=== PATIENT | male | born 1950 | race Caucasian/White ===

== ENCOUNTER 2023-06-01 11:41 | Emergency (ER) | payer MEDICARE, BC, SELFPAY ==
[2023-06-01 11:46] VITALS: BP 156/82
--- NOTE | 2023-06-02 07:24 | ED.GENMED ---
History of Present Illness
General
Chief Complaint: Fall
Source: patient
Exam Limitations: none
Time Seen by Provider: 06/01/23 12:53
Nursing documentation reviewed up to this point in time: agreed with
Travel History
Have you had any contact with someone who has COVID-19?: No
Do you have any symptoms of coronavirus? Fever > 100 degrees, chills, cough, shortness of breath, sore throat, loss of taste or smell, muscle aches, or headache?: No
History of Present Illness
History of Present Illness:
73 yo male w h/o HTN, HLD, MA, Cardiac stents, states he slipped on ice while shovelling yesterday striking the back of his head on an electric meter. He was able to continue with his ADLs. Today awakened with mild nausea and lightheadedness. Not
anticoagulated, denies neck pain. Denies any other injury. Denies n/v, headache.
Past History
Past History
ED Past Medical History: CAD, Hypercholesterolemia and MA
ED Past Surgical History: Cardiac (stents) and Orthopedic
Social History
Tobacco: Non-smoker
Drug: None
Personal:
Living: with family
Employment: Retired
Phy Exam
General Physical Exam
General Presentation: well appearing and no apparent distress
General age: appears stated age
General Skin: warm and dry
General Habitus: normal
General Mental: alert
General Hydration: appears well hydrated
ENT Exam
ENT Exam: EOMI, TM's normal, pharynx normal, neck supple and normocephalic
Eye Exam
Eye Exam: PERRL, EOMI, cornea clear and conjunctiva normal
Cardiovascular Exam
Cardiovascular Exam: regular rate/rhythm
Heart Sounds: normal
Pulmonary Exam
Pulmonary Exam: lungs clear and chest non tender
Gastrointestinal Exam
Gastrointestinal Exam: non tender and soft
Neurological Exam
Neurological Exam: alert, oriented x3, CN II-XII intact, no motor deficits, speech normal, cerebellum intact and normal gait
Musculoskeletal Exam
Musculoskeletal Exam: neuro vasc intact
Skin Exam
Skin Exam: normal color and warm/dry
Psychiatric Exam
Psychiatric Exam: normal mood/affect
Course
Vital Signs
Initial and Last Documented VS:
Initial Vital Signs
Temp Pulse Resp BP Pulse Ox
97.6 F 67 18 156/82 98
06/01/23 11:46 06/01/23 11:46 06/01/23 11:46 06/01/23 11:46 06/01/23 11:46
Last Documented Vital Signs
Temp Pulse Resp BP Pulse Ox
97.6 F 67 18 156/82 98
06/01/23 11:46 06/01/23 11:46 06/01/23 11:46 06/01/23 11:46 06/01/23 11:46
MDM/Problems Addressed
Differential Diagnosis Includes:
post traumatic headache, concussion, ICH
MDM/Problems Addressed:
73 yo male w h/o HTN, HLD, MA, Cardiac stents, states he slipped on ice while shovelling yesterday striking the back of his head on an electric meter. He was able to continue with his ADLs. Today awakened with mild confusion, nausea and
lightheadedness, all which have improved. states called PCP who recommended ED eval. Not anticoagulated, denies neck pain. Denies any other injury. Denies n/v, headache.
NAD
No focal neurological deficits, not anticoagulated, no LOC, PE unremarkable, no indication for head CT at this time.
Reviewed signs of concussion, reasons to return
Pt and comfortable with plan.
Pt ambulated out with normal gait.
Chronic conditions affecting care: HTN and CAD
*Critical Care Note
Total Time (30-74mins, 75-104mins- exclusive of procedures): Not Applicable
ED Attending Note
-
Portions of this chart may have been created with voice recognition software.� Occasional wrong word or��sound alike� substitutions may have occurred due to the inherent limitations of voice recognition software.
Discharge Plan
Departure
Patient Disposition: Home (Routine Discharge)
Date of Disposition: 06/01/23
Time of Disposition: 13:11
Patient with high blood pressure during this ER visit?: No
Condition: Good
Discharge Problem:
Fall from slip, trip, or stumble, Head injury, acute, without loss of consciousness, Mild concussion
Instructions: Concussion, Adult (DC), Head Injury in Adults (DC)
Prescriptions:
No Action
multivitamin [Daily Vitamin] 1 EACH tablet
1 ea PO DAILY
aspirin 81 MG tablet,chewable
81 mg PO DAILY
hydrochlorothiazide 25 MG tablet
25 mg PO DAILY
metoprolol succinate [Toprol XL] 25 MG tablet extended release 24 hr
12.5 mg PO DAILY
lecithin 400 MG capsule
400 mg PO DAILY
rosuvastatin 20 MG tablet
20 mg PO QPM
fish oil-dha-epa 1 EACH capsule
1 ea PO DAILY
vitamin E (dl, acetate) 400 UNITS capsule
400 units PO DAILY
ascorbic acid (vitamin C) [Vitamin C] 500 MG tablet
500 mg PO DAILY
candesartan [Atacand] 32 MG tablet
32 mg PO DAILY
amlodipine 5 MG tablet
5 mg PO DAILY
acetaminophen 325 MG tablet
650 mg PO Q4HPRN PRN (Reason: mild pain) 0RF
tolterodine 4 MG capsule,extended release 24hr
4 mg PO DAILYPRN PRN (Reason: bladder spasms) Qty: 7 0RF
phenazopyridine 200 MG tablet
200 mg PO TIDPRN PRN (Reason: burning with urination) Qty: 15 0RF
Referrals:
Tiburcio Mejia I., DO [Family Provider] - As needed
Activity Restrictions/Additional Instructions:
As we discussed, I see nothing worrisome in your exam.
See your doctor Tuesday if you are not 100% better by then
Return here immediately for vomiting more than once in 1 hour, confusion or headache that gets worse and worse despite Tylenol.
Interventions
Interventions:
*Risk Screen - Suicide Last Done: 06/01/23 13:25
*General Assessment Last Done: 06/01/23 13:25
*Neglect/Abuse Screening Last Done: 06/01/23 13:25
*Nursing Disposition Last Done: 06/01/23 13:25
ED- Neurological Assessment Last Done: 06/01/23 13:00
Discharge Date and Time
Discharge Date/Time: 06/01/23 13:25
== END 2023-06-01 13:25 | disposition home or self-care (01) ==
LOC: EMR 11:41
PROVIDERS: EMERGENCY PHYSICIAN Emergency Medicine; FAMILY PHYSICIAN Internal Medicine
DX: S06.0X0A Concussion without loss of consciousness, initial encounter (principal); W00.0XXA Fall on same level due to ice and snow, initial encounter; I10 Essential (primary) hypertension; E78.00 Pure hypercholesterolemia, unspecified; I25.2 Old myocardial infarction
CPT/HCPCS: 99282

== ENCOUNTER 2023-11-02 14:36 | Emergency (ER) | payer MEDICARE, BC, SELFPAY ==
[2023-11-02 14:39] VITALS: BP 154/95
--- NOTE | 2023-11-02 17:15 | ED.GENMED ---
Addendum entered and electronically signed by Momo Mckeon MD 11/02/23 20:14:
Patient made aware of minimal hypokalemia for follow-up. EKG shows normal sinus rhythm first-degree block. Left axis deviation. No acute changes.
Original Note:
History of Present Illness
General
Chief Complaint: Headache
Source: patient
Exam Limitations: none
Time Seen by Provider: 11/02/23 16:58
History of Present Illness
History of Present Illness:
73-year-old male 2 to 3 weeks of ongoing right frontal headaches. Somewhat intermittent nature. Sometimes worse waxes and wanes. No nausea or vomiting. No visual issues. No orbital or eye pain. No fever or chills. No neck symptoms. No acute
neurologic issues. Patient sent by his primary physician for CTA head and neck.
Past History
Past History
ED Past Medical History: CAD, Hypercholesterolemia and SC
ED Past Surgical History: Cardiac (stents) and Orthopedic
Social History
Tobacco: Non-smoker
Drug: None
Personal:
Living: with family
Employment: Retired
Phy Exam
Physical Exam
Physical Exam:
GENERAL: Alert and oriented in no apparent distress
EYE: Orbits normal. Discs sharp. Extraocular muscles intact. No orbital tenderness. No temporal tenderness. No erythema
NECK: Supple, nontender.
CARDIAC: Regular rate and rhythm without any obvious murmurs.
LUNGS: Clear breath sounds,normal
ABDOMEN: Soft, without focal tenderness or distention
NEUROLOGICAL: Alert and oriented , grossly non-focal. Cranial nerves II through XII intact. Speech normal. Nonfocal.
SKIN: Warm and dry, no rash or lesion, no discoloration, skin intact.
MUSCULOSKELETAL: No edema,no deformity.Good color
PSYCH: Normal and appropriate interaction.
Course
Orders/Labs/Results
Orders:
Orders
11/02/23 17:07
CT Head & Neck Angio W/wo IV Urgent
Comment:
Reason For Exam: Severe left frontal headache. requested by pmd
IV Insert/Care/Rem.- Treatment PRN
0.9% Sodium Chloride 500 ml [Nss] 500 ml IV BOLUS
Pulse Ox/cont/shift [RESP] Stat
Quantity: 1
11/02/23 17:08
Electrocardiogram (*1) Stat
Reason for Study: Other
Other Reason for Exam: Headache
EKG- Treatment ONCE
11/02/23 17:39
Basic Metabolic Panel Urgent
Complete Blood Count/With Diff Urgent
Erythrocyte Sed Rate Urgent
Abnormal Lab Results
11/02/23
17:39
Absolute Monos (auto) 0.7 H 10^3/uL
(0.1-0.6)
Potassium 3.4 L mmol/L
(3.5-5.1)
BUN 26 H mg/dl
(9-20)
Glucose 101 H mg/dl
(70-99)
11/02/23 17:39
11/02/23 17:39
Vital Signs
Initial and Last Documented VS:
Initial Vital Signs
Temp Pulse Resp BP Pulse Ox
98.5 F 90 18 154/95 96
11/02/23 14:39 11/02/23 14:39 11/02/23 14:39 11/02/23 14:39 11/02/23 14:39
Last Documented Vital Signs
Temp Pulse Resp BP Pulse Ox
98.5 F 86 18 171/85 100
11/02/23 14:39 11/02/23 17:49 11/02/23 17:49 11/02/23 17:49 11/02/23 17:49
MDM/Problems Addressed
Differential Diagnosis Includes:
Ongoing left frontal headache. Clinically nontoxic and in no distress. Differential would include bleed aneurysm dissection less serious etiologies would include sinusitis temporal arteritis, tension. No thing to support an orbital issue or
glaucoma. Workup in progress.
*Radiology
Radiology exam reviewed: radiology read reviewed (No acute findings. 60% stenosis left internal carotid artery. Less than 50% right. No aneurysm no bleed. No dissection.)
*Pulse Oximetry
Patient hypoxic: no
*Critical Care Note
Total Time (30-74mins, 75-104mins- exclusive of procedures): Not Applicable
Data Reviewed
Review of Other/Old Records Reveals: Labs, Records and Testing
Update Note
Update Note:
Patient very nontoxic and stable. In no distress. ESR normal. Labs normal. Neurologic exam normal. CT angiography with nothing that would explain his left frontal headaches. 60% stenosis on the left but no neurologic symptoms. Stable for
discharge to follow-up
ED Attending Note
-
Portions of this chart may have been created with voice recognition software.� Occasional wrong word or��sound alike� substitutions may have occurred due to the inherent limitations of voice recognition software.
Discharge Plan
Departure
Patient Disposition: Home (Routine Discharge)
Date of Disposition: 11/02/23
Time of Disposition: 20:11
Patient with high blood pressure during this ER visit?: Yes
Discharge Problem:
Left frontal headache, Left 60% ICA narrowing
Instructions: Headache, Adult (DC), BLOOD PRESSURE
Prescriptions:
No Action
multivitamin [Daily Vitamin] 1 EACH tablet
1 ea PO DAILY
aspirin 81 MG tablet,chewable
81 mg PO DAILY
hydrochlorothiazide 25 MG tablet
25 mg PO DAILY
metoprolol succinate [Toprol XL] 25 MG tablet extended release 24 hr
12.5 mg PO DAILY
lecithin 400 MG capsule
400 mg PO DAILY
rosuvastatin 20 MG tablet
20 mg PO QPM
fish oil-dha-epa 1 EACH capsule
1 ea PO DAILY
vitamin E (dl, acetate) 400 UNITS capsule
400 units PO DAILY
ascorbic acid (vitamin C) [Vitamin C] 500 MG tablet
500 mg PO DAILY
candesartan [Atacand] 32 MG tablet
32 mg PO DAILY
amlodipine 5 MG tablet
5 mg PO DAILY
acetaminophen 325 MG tablet
650 mg PO Q4HPRN PRN (Reason: mild pain) 0RF
tolterodine 4 MG capsule,extended release 24hr
4 mg PO DAILYPRN PRN (Reason: bladder spasms) Qty: 7 0RF
phenazopyridine 200 MG tablet
200 mg PO TIDPRN PRN (Reason: burning with urination) Qty: 15 0RF
Referrals:
UNKNOWN - PT DOES,NOT KNOW [Family Provider] -
Cny Dorado MD [Active] - Next open appointment
Activity Restrictions/Additional Instructions:
Follow-up with your primary physician in 1 to 2 days
Also for completeness I recommend follow-up with a vascular surgeon
Return sooner with worsening headache any neurologic symptoms including visual changes numbness tingling weakness etc.
Interventions
Interventions:
ED- Neurological Assessment Last Done: 11/02/23 17:49
Discharge Date and Time
Print Language: CYPRIOT
[2023-11-02] MEDS: NSS 500 IV (17:41)
[2023-11-02 17:47] LABS: % Basophils 0.6 % (0-2); % Eosinophils 2.3 % (0-6); % Immature Granulocytes 0.4 % (0-0.5); % Lymphocytes 29.6 % (20.5-51.1); % Monocytes 8.5 % (1.7-9.3); % Neutrophils 58.6 % (42.2-75.2); Absolute Basophils 0.1 10^3/uL (0-0.2); Absolute Eosinophils 0.2 10^3/uL (0-0.7); Absolute Lymphocytes 2.5 10^3/uL (1.2-3.4); Absolute Monocytes 0.7 10^3/uL (0.1-0.6); Absolute Neutrophils 4.9 10^3/uL (1.4-6.5); Hematocrit 44.9 % (39.0-52.0); Hemoglobin 15.8 g/dL (13.0-18.0); Mean Corp Hgb Conc. 35.2 g/dL (33.0-37.0); Mean Corpuscular Hgb 30.9 pg (27.0-31.0); Mean Corpuscular Volume 87.9 fL (80.0-94.0); Mean Platelet Volume 9.4 fL (7.4-10.4); Nucleated Red Blood Cells % 0 % (-); Platelet Count 227 10^3/uL (130-400); Red Blood Cell Count 5.11 10^6/uL (4.70-6.10); Red Cell Dist. Width 14.1 % (11.5-14.5); White Blood Cell Count 8.3 10^3/uL (4.8-10.8)
[2023-11-02 17:49] VITALS: BP 171/85
[2023-11-02 17:58] LABS: Blood Urea Nitrogen 26 mg/dl (9-20); Carbon Dioxide 26 mmol/L (22-30); Chloride 104 mmol/L (98-107); Glucose 101 mg/dl (70-99); Potassium 3.4 mmol/L (3.5-5.1); Sodium 138 mmol/L (135-145); eGFR > 60.00
[2023-11-02 18:06] LABS: Erythrocyte Sed Rate 8 mm/hour (0-20)
== END 2023-11-02 20:22 | disposition home or self-care (01) ==
LOC: EMR 14:36
PROVIDERS: EMERGENCY PHYSICIAN Emergency Medicine
DX: R51.9 Headache, unspecified (principal); E87.6 Hypokalemia; I65.21 Occlusion and stenosis of right carotid artery; I25.10 Atherosclerotic heart disease of native coronary artery without angina pectoris; E78.00 Pure hypercholesterolemia, unspecified; I10 Essential (primary) hypertension; Z95.5 Presence of coronary angioplasty implant and graft; I25.2 Old myocardial infarction; Z88.5 Allergy status to narcotic agent; Z79.82 Long term (current) use of aspirin
CPT/HCPCS: 99285; 96360; 94760; 70496; 70498; 80048; 85025; 85652; 93005; Q9967

== ENCOUNTER → 2023-12-07 10:16 | Outpatient (REF) | payer MEDICARE, BC, SELFPAY | LOC: RAD 10:16 | PROVIDERS: ATTENDING PHYSICIAN Surgery Vascular Surgery; FAMILY PHYSICIAN Internal Medicine | DX: I65.22 Occlusion and stenosis of left carotid artery (principal); Z13.6 Encounter for screening for cardiovascular disorders | CPT/HCPCS: 76770; 93880 ==

== ENCOUNTER 2024-07-04 06:15 | Day surgery (SDC) | payer MEDICARE, BC, SELFPAY | END 2024-07-04 08:43 | disposition home or self-care (01) | LOC: GI 06:15 | PROVIDERS: ATTENDING PHYSICIAN Specialist | DX: Z12.11 Encounter for screening for malignant neoplasm of colon (principal); K57.30 Diverticulosis of large intestine without perforation or abscess without bleeding; Z86.0100 Personal history of colon polyps, unspecified | CPT/HCPCS: G0105 ==

== ENCOUNTER → 2025-03-26 10:03 | Outpatient (REF) | payer MEDICARE, BC, SELFPAY | LOC: RAD 10:03 | PROVIDERS: ATTENDING PHYSICIAN Physician Assistant; FAMILY PHYSICIAN Internal Medicine | DX: M54.50 Low back pain, unspecified (principal) | CPT/HCPCS: 72072; 72100 ==

== ENCOUNTER → 2025-04-10 13:13 | Outpatient (REF) | payer MEDICARE, BC, SELFPAY | LOC: PAVMRI 13:13 | PROVIDERS: ATTENDING PHYSICIAN Physician Assistant; FAMILY PHYSICIAN Internal Medicine | DX: M54.16 Radiculopathy, lumbar region (principal); Z96.642 Presence of left artificial hip joint; M70.72 Other bursitis of hip, left hip | CPT/HCPCS: 72148 ==

== ENCOUNTER 2025-04-13 11:31 | Emergency (ER) | payer MEDICARE, BC, SELFPAY ==
[2025-04-13 11:33] VITALS: BP 167/100
--- NOTE | 2025-04-13 12:01 | ED.MUSCINJ ---
HPI-Injury
General
Chief Complaint: Fall
Source: patient
Exam Limitations: none
Time Seen by Provider: 04/13/25 11:50
History of Present Illness-Injury
Initial Injury comments:
74-year-old male not anticoagulated presents after slip and fall on the ice. He fell backwards landing on his back and head. He notes headache neck pain and back pain. He also notes right small finger pain. No loss of conscious. No chest pain
or shortness of breath. No other complaints
Past History
Past History
ED Past Medical History: CAD, Hypercholesterolemia and IN
ED Past Surgical History: Cardiac (stents) and Orthopedic
Social History
Tobacco: Non-smoker
Drug: None
Personal:
Living: with family
Employment: Retired
Phy Exam
Physical Exam
Physical Exam:
General: Well-appearing male no acute respiratory distress
HEENT normal cephalic contusion noted to the right posterior scalp pupils equal round reactive to light TMs normal
Heart: Regular rate and rhythm
Lungs: Clear no wheeze
Musculoskeletal exam: There is tenderness about the cervical spine lower thoracic and upper lumbar spine. There is also tenderness to the right small finger possibly slight ulnar deviation of the right small finger
Neurologic exam: Normal gait conversing appropriately alert and oriented
Injury Course
Orders/Labs/Results
Orders:
Orders
04/13/25 11:56
CT Cervical Spine W/o Iv Contr Urgent
Comment:
Reason For Exam: fall
CT Head W/o Iv Contrast Urgent
Comment:
Reason For Exam: fall
CR Hand - Right Min 3 Views Urgent
Comment:
Reason For Exam: fall
CR Lumbar Spine 2 Or 3 Views Urgent
Comment:
Reason For Exam: fall
CR Thoracic Spine 3 Views Urgent
Comment:
Reason For Exam: fall
MDM/Problems Addressed
Differential Diagnosis Includes:
Patient with mechanical fall. CT of the head cervical spine x-ray thoracic and lumbar spine ordered. X-ray right hand ordered as well
*Pulse Oximetry
SaO2: 98
Oxygen Mode of Delivery: Room air
Patient hypoxic: no
*Critical Care Note
Total Time (30-74mins, 75-104mins- exclusive of procedures): Not Applicable
Update Note
Update Note:
CT of head and cervical spine negative. X-rays of the thoracic lumbar spine and right hand were reviewed and are negative for acute findings as well. Patient reassured. Recommend Tylenol or ibuprofen. Stable for discharge
ED Attending Note
-
Portions of this chart may have been created with voice recognition software.� Occasional wrong word or��sound alike� substitutions may have occurred due to the inherent limitations of voice recognition software.
Discharge Plan
Departure
Patient Disposition: Home (Routine Discharge)
Date of Disposition: 04/13/25
Time of Disposition: 14:02
Patient with high blood pressure during this ER visit?: No
Discharge Problem:
Fall
Instructions: Preventing falls in adults
Prescriptions:
No Action
multivitamin [Daily Vitamin] 1 EACH tablet
1 ea PO DAILY
aspirin 81 MG tablet,chewable
81 mg PO DAILY
hydrochlorothiazide 25 MG tablet
25 mg PO DAILY
metoprolol succinate [Toprol XL] 25 MG tablet extended release 24 hr
12.5 mg PO DAILY
lecithin 400 MG capsule
400 mg PO DAILY
rosuvastatin 20 MG tablet
20 mg PO QPM
fish oil-dha-epa 1 EACH capsule
1 ea PO DAILY
vitamin E (dl, acetate) 400 UNITS capsule
400 units PO DAILY
ascorbic acid (vitamin C) [Vitamin C] 500 MG tablet
500 mg PO DAILY
candesartan [Atacand] 32 MG tablet
32 mg PO DAILY
amlodipine 5 MG tablet
5 mg PO DAILY
acetaminophen 325 MG tablet
650 mg PO Q4HPRN PRN (Reason: mild pain) 0RF
tolterodine 4 MG capsule,extended release 24hr
4 mg PO DAILYPRN PRN (Reason: bladder spasms) Qty: 7 0RF
phenazopyridine 200 MG tablet
200 mg PO TIDPRN PRN (Reason: burning with urination) Qty: 15 0RF
Referrals:
Tiburcio Mejia I., [Family Provider, Internal Medicine]
Activity Restrictions/Additional Instructions:
Rest. Use ibuprofen or Tylenol for pain peer return if worse otherwise follow-up with your doctor
Interventions
Interventions:
*General Assessment Last Done: 04/13/25 11:33
*Neglect/Abuse Screening Last Done: 04/13/25 11:33
*ED COVID-19 Vaccine History Last Done: 04/13/25 11:33
*ED Influenza Vaccine History Last Done: 04/13/25 11:33
[facility] Fall Risk Assessment Tool Last Done: 04/13/25 11:38
*Risk Screen - Suicide (C-SSRS) Last Done: 04/13/25 11:33
ED-Musculoskeletal Assessment Last Done: 04/13/25 11:38
ED- Neurological Assessment Last Done: 04/13/25 11:38
ED-Skin Assessment Last Done: 04/13/25 11:38
Discharge Date and Time
Print Language: GUATEMALAN
[2025-04-13 14:07] VITALS: BP 154/95
== END 2025-04-13 14:18 | disposition home or self-care (01) ==
LOC: EMR 11:31
PROVIDERS: EMERGENCY PHYSICIAN Emergency Medicine; FAMILY PHYSICIAN Internal Medicine
DX: S00.03XA Contusion of scalp, initial encounter (principal); M54.2 Cervicalgia; M54.9 Dorsalgia, unspecified; W00.0XXA Fall on same level due to ice and snow, initial encounter; E78.00 Pure hypercholesterolemia, unspecified; I25.10 Atherosclerotic heart disease of native coronary artery without angina pectoris; I25.2 Old myocardial infarction; Z95.5 Presence of coronary angioplasty implant and graft
CPT/HCPCS: 99284; 70450; 72072; 72100; 72125; 73130

== ENCOUNTER 2025-04-16 23:53 | Emergency (ER) | payer MEDICARE, BC, SELFPAY ==
[2025-04-16 23:53] VITALS: BP 143/92
[2025-04-17] MEDS: VALIUM 5 MG PO (04:05)
[2025-04-17] MEDS: PERCOCET 5/325 1 TABLET PO (05:27)
--- NOTE | 2025-04-17 05:30 | ED.GENMED ---
History of Present Illness
General
Chief Complaint: Musculo-Skeletal Complaint
Source: patient
Exam Limitations: none
Time Seen by Provider: 04/17/25 03:50
Nursing documentation reviewed up to this point in time: agreed with
History of Present Illness
History of Present Illness:
Note:
CHIEF COMPLAINT(S)
Upper back pain following a fall.
HISTORY OF PRESENT ILLNESS
The patient is a 75-year-old male who presents with severe upper back pain, which started suddenly today. He reports having fallen last Tuesday, landing on his back and head. Imaging, including X-rays and CT scan, were performed at that time, but
details of those findings are not provided. The patient describes the pain as localized to the area of impact, near the shoulder blade, and states, 'Its like I got stuck in here.' He experiences exacerbation of the pain with deep breaths or
movement, though he denies current shortness of breath. He has been taking ibuprofen for pain relief. The patient has a past medical history of cardiovascular issues, including stents, and a history of cancer, which he reports is currently under
control. The patient is concerned about a potential pneumothorax due to the fall.
PAST MEDICAL AND SURGICAL HISTORY
The patient disclosed a history of cardiovascular disease requiring stents and a significant history of cancer, noting that it is now under control.
MEDICATIONS
The patient has been taking ibuprofen for pain.
REVIEW OF SYSTEMS
- Musculoskeletal: Pain in the upper back, especially around the shoulder blade, worsens with movement and deep breathing.
- Respiratory: Denies shortness of breath but experiences increased pain with deep breaths.
PHYSICAL EXAM
General: Alert, no acute distress.
Skin: Warm, dry.
Head: Normocephalic, atraumatic.
Neck: Supple, trachea midline.
Eye, Ears, Nose, Mouth, and Throat: Oral mucosa moist.
Cardiovascular: Normal peripheral perfusion, No edema.
Respiratory: Respirations are non-labored, clear lung sounds auscultated.
Gastrointestinal: Abdomen nondistended.
Back: Normal range of motion, tenderness reported near the upper back.
Musculoskeletal: Normal range of motion but pain noted in the upper back area.
Neurological: Alert and oriented to person, place, time, and situation, No focal neurological deficit observed.
Psychiatric: Cooperative, appropriate mood & affect.
PROBLEM LIST
Acute Problems:
- Upper Back Pain
- Possible pneumothorax
- Potential rib fracture
PLAN
1. Obtain a repeat chest X-ray to assess for pneumothorax or rib fracture.
2. Provide the patient with an incentive spirometer to encourage deep breathing and prevent pneumonia.
3. Consider pain management with muscle relaxants such as diazepam (Valium).
DIFFERENTIAL DIAGNOSIS
The Differential Diagnosis includes, in no particular order and is not limited to:
1. Rib fracture
2. Pneumothorax
3. Muscular strain or contusion
4. Pulmonary contusion
5. Hemothorax
6. Costochondritis
7. Intervertebral disc injury
8. Osteoporosis-related vertebral fracture
9. Pleural effusion
10. Pneumonia
Disposition:
SUMMARY OF ENCOUNTER
The patient is a 35-year-old male who presented to the emergency department following a slip and fall several days ago. He reports that his pain has not improved despite prior treatment with muscle relaxants. A chest x-ray was performed, and the
results were completely normal. The patient expresses a desire to be discharged as he mentioned the support needed at home due to his [id number] living there. Return to ER instructions were discussed with the patient and his .
PLAN
1. Discharge the patient with instructions to return to the emergency department if symptoms worsen or if he experiences any new or concerning symptoms.
PATIENT EDUCATION AND COUNSELING
Discussed with the patient and his about monitoring for any worsening symptoms or new symptoms and the importance of returning to the emergency department if necessary.
FOLLOW-UP INSTRUCTIONS
Advised to follow up with primary care or movement education specialist as needed for ongoing pain management and further evaluation if the pain persists.
MEDICAL DECISION MAKING
- Number and Complexity of Problems Addressed: Chronic conditions affecting care [None mentioned].
- Data:
- Category 1: Clinical information was obtained from patient.
- My independent interpretation of the chest x-ray shows no abnormalities.
- Risk: Consideration of Admission/Observation: Escalation of care, including admission/observation, was considered given the complexity and risk of the patients presenting complaint. However, ultimately I feel the patient is safe for outpatient
management with close follow-up. Reasoning: Work-up reassuring, does not reveal any acute life/organ threatening processes, patients symptoms well controlled upon reevaluation, reexamination is reassuring, vitals are stable, patient agreeable with
discharge, reliable for follow-up.
DIAGNOSIS
1. Musculoskeletal pain, unspecified site - M79.1
2. Fall on same level, initial encounter - W19.XXXA
Past History
Past History
ED Past Medical History: CAD, Hypercholesterolemia and ID
ED Past Surgical History: Cardiac (stents) and Orthopedic
Social History
Tobacco: Non-smoker
Drug: None
Personal:
Living: with family
Employment: Retired
Phy Exam
Physical Exam
Physical Exam:
.
Course
Orders/Labs/Results
Orders:
Orders
04/17/25 03:59
Diazepam [Valium] 5 mg PO NOW STA
CR Chest - 2 Views Urgent
Comment:
Reason For Exam: fall
Incentive Spirometry [Rx Incentive Spirometry] [RESP] Urgent
Frequency: q1h while awake
04/17/25 05:21
Oxycodone/Acetaminophen [Percocet 5/325] 1 tablet PO NOW STA
Vital Signs
Initial and Last Documented VS:
Initial Vital Signs
Temp Pulse BP Pulse Ox
98.2 F 98 143/92 97
04/16/25 23:53 04/16/25 23:53 04/16/25 23:53 04/16/25 23:53
Last Documented Vital Signs
Temp Pulse BP Pulse Ox
98.2 F 98 143/92 97
04/16/25 23:53 04/16/25 23:53 04/16/25 23:53 04/16/25 23:53
*Radiology
Radiology exam reviewed: all reviewed NAD by ED Provider
*Pulse Oximetry
SaO2: 97
Oxygen Mode of Delivery: Room air
Patient hypoxic: no
*Critical Care Note
Total Time (30-74mins, 75-104mins- exclusive of procedures): Not Applicable
ED Attending Note
-
Portions of this chart may have been created with voice recognition software.� Occasional wrong word or��sound alike� substitutions may have occurred due to the inherent limitations of voice recognition software.
Discharge Plan
Departure
Patient Disposition: Home (Routine Discharge)
Date of Disposition: 04/17/25
Time of Disposition: 05:33
Patient with high blood pressure during this ER visit?: Yes
Condition: Good
Discharge Problem:
Back pain
Instructions: Musculoskeletal Pain, How to use an incentive spirometer
Prescriptions:
New
oxycodone-acetaminophen [Percocet] 5-325 mg tablet
1 tab PO Q6HPRN PRN (Reason: pain) Qty: 10 0RF
No Action
multivitamin [Daily Vitamin] 1 EACH tablet
1 ea PO DAILY
aspirin 81 MG tablet,chewable
81 mg PO DAILY
hydrochlorothiazide 25 MG tablet
25 mg PO DAILY
metoprolol succinate [Toprol XL] 25 MG tablet extended release 24 hr
12.5 mg PO DAILY
lecithin 400 MG capsule
400 mg PO DAILY
rosuvastatin 20 MG tablet
20 mg PO QPM
fish oil-dha-epa 1 EACH capsule
1 ea PO DAILY
vitamin E (dl, acetate) 400 UNITS capsule
400 units PO DAILY
ascorbic acid (vitamin C) [Vitamin C] 500 MG tablet
500 mg PO DAILY
candesartan [Atacand] 32 MG tablet
32 mg PO DAILY
amlodipine 5 MG tablet
5 mg PO DAILY
acetaminophen 325 MG tablet
650 mg PO Q4HPRN PRN (Reason: mild pain) 0RF
tolterodine 4 MG capsule,extended release 24hr
4 mg PO DAILYPRN PRN (Reason: bladder spasms) Qty: 7 0RF
phenazopyridine 200 MG tablet
200 mg PO TIDPRN PRN (Reason: burning with urination) Qty: 15 0RF
Referrals:
Tiburcio Mejia DO [Family Provider, Internal Medicine]
Activity Restrictions/Additional Instructions:
Your prescriptions were sent electronically to the pharmacy that you specified.
Thank You for choosing [facility].
It was a pleasure meeting you and taking part in your care. We hope for your continued healing and wellness.
Please read discharge instructions in their entirety. However, they are for general education and may not describe your exact diagnosis at discharge. Information on your ER visit and medical conditions were discussed with you along with appropriate
follow up information...
If indicated, please take your medications as instructed and indicated on discharge paperwork.
Please schedule a follow up appointment as directed. Call to schedule an appointment
Please return to the emergency department with ANY change in, persisting, or worsening of symptoms. If any of your symptoms do not improve, or persist, or become more severe within 6-12 hours, please return to the emergency department for further
care.
Please return to the emergency department if you develop a headache, neck pain/stiffness, fever greater than 100.4F, chest pain, shortness of breath, persistent nausea, vomiting, slurred speech, difficulty walking, numbness/tingling, weakness, signs
of infection or any other symptoms that are worrisome to you.
If you have any questions or concerns please do not hesitate to call the Hospital at .
Interventions
Interventions:
*General Assessment Last Done: 04/17/25 00:13
*Neglect/Abuse Screening Last Done: 04/17/25 00:13
*ED COVID-19 Vaccine History Last Done: 04/17/25 00:13
*ED Influenza Vaccine History Last Done: 04/17/25 00:13
*Risk Screen - Suicide (C-SSRS) Last Done: 04/17/25 00:13
ED-Musculoskeletal Assessment Last Done: 04/17/25 02:15
Discharge Date and Time
Print Language: MALIAN
== END 2025-04-17 06:10 | disposition home or self-care (01) ==
LOC: EMR 23:53
PROVIDERS: EMERGENCY PHYSICIAN Student in an Organized Health Care Education/Training Program; FAMILY PHYSICIAN Internal Medicine
DX: M54.6 Pain in thoracic spine (principal); W01.0XXA Fall on same level from slipping, tripping and stumbling without subsequent striking against object, initial encounter; I25.10 Atherosclerotic heart disease of native coronary artery without angina pectoris; E78.00 Pure hypercholesterolemia, unspecified; I25.2 Old myocardial infarction; Z79.2 Long term (current) use of antibiotics; Z95.5 Presence of coronary angioplasty implant and graft
CPT/HCPCS: 99283; 71046